=== PATIENT | female | born 1945 | race Caucasian/White ===

== ENCOUNTER 2019-07-02 19:49 | Inpatient (IN) | payer MEDICARE, OTHER ==
[~2019-07-02] VITALS: Ht 160 cm; Wt 62.6 kg
[2019-07-02 22:04] LABS: BASOPHILS # (AUTO) 0.1 K/uL (0.0-8.0); BASOPHILS % (AUTO) 0.6 % (0.0-2.0); EOSINOPHILS # (AUTO) 0.3 K/uL (0.0-0.7); EOSINOPHILS % (AUTO) 2.7 % (0.0-7.0); HEMATOCRIT 31.5 % (31.2-41.9); LYMPHOCYTES # (AUTO) 3.4 K/uL (20.0-40.0); LYMPHOCYTES % (AUTO) 32.9 % (20.5-51.5); MEAN CORPUSCULAR HEMOGLOBIN 24.3 uug (24.7-32.8); MEAN CORPUSCULAR HGB CONC 32 g/dL (32.3-35.6); MEAN CORPUSCULAR VOLUME 76.7 fL (75.5-95.3); MONOCYTES # (AUTO) 0.5 K/uL (2.0-10.0); MONOCYTES % (AUTO) 5.1 % (0.0-11.0); NEUTROPHILS # (AUTO) 6.1 K/uL (1.8-8.9); NEUTROPHILS % (AUTO) 58.7 % (38.5-71.5); PLATELET COUNT (AUTO) 307 K/uL (179-408); RED BLOOD CELL COUNT(AUTO) 4.11 MIL/uL (3.63-4.92); WHITE BLOOD COUNT (AUTO) 10.3 K/uL (3.8-11.8)
[2019-07-02 22:07] LABS: POTASSIUM 4.4 mmol/L (3.5-5.1)
[2019-07-02 22:13] LABS: BILIRUBIN,DIRECT 0.1 mg/dL (0.0-0.2); BILIRUBIN,TOTAL 0.6 mg/dL (0.2-1.0); TOTAL PROTEIN, SERUM 7.9 g/dL (6.4-8.2)
[2019-07-02] MEDS ORDERED: IV NORMAL SALINE 1000 ML BAG IV ONE (22:15)
[2019-07-02] MEDS ORDERED: ONDANSETRON 4 MG/2 ML VIAL IV ONE (22:15)
[2019-07-02] MEDS ORDERED: ONDANSETRON 4 MG/2 ML VIAL ONE (22:18)
[2019-07-02] MEDS ORDERED: ACETAMINOPHEN 325 MG TABLET PO PRN (22:45)
[2019-07-02] MEDS ORDERED: ONDANSETRON 4 MG/2 ML VIAL IV PRN (22:45)
[2019-07-02] MEDS ORDERED: MAGNESIUM HYDROXIDE 30 ML LIQUID UDC PO PRN (22:45)
[2019-07-02] MEDS ORDERED: Z GUARD REMEDY PASTE 57 GM TUBE TOP PRN (22:45)
[2019-07-02 23:16] LABS: *BILIRUBIN,URIN NEGATIVE (NEGATIVE); *BLOOD, URINE NEGATIVE (NEGATIVE); *KETONES,URINE NEGATIVE (NEGATIVE); *UROBILINOGEN,URINE 0.2 E.U./dl (NORMAL); LEUKOCYTE ESTERASE ,URINE TRACE (NEGATIVE); NITRITE, URINE NEGATIVE (NEGATIVE); UGLUCOSE NEGATIVE (NEGATIVE)
[2019-07-02 23:25] LABS: *CLARITY,URINE HAZY (CLEAR)
[2019-07-02 23:26] LABS: BACTERIA,URINE MANY /HPF (NONE SEEN); RBC,URINE NONE SEEN /HPF (0-3); SQUAMOUS EPITHELIAL CELL,UR NONE SEEN /HPF (NONE SEEN)
[2019-07-02 23:27] LABS: *COLOR,URINE STRAW (YELLOW)
[2019-07-03] MEDS: ATORVASTATIN 20 MG TABLET PO SCH ×2 (01:20→21:19)
[2019-07-03] MEDS: IV NS 1000 ML 1,000 ML IV PRN ×2 (01:56→15:39)
[2019-07-03 02:00] VITALS: BP 107/32
[2019-07-03] MEDS ORDERED: PANTOPRAZOLE SODIUM 40 MG VIAL ONE (03:40)
[2019-07-03] MEDS ORDERED: CEFTRIAXONE 1 G VIAL ONE (03:40)
[2019-07-03] MEDS: CEFTRIAXONE 1 G in IV DEXTROSE 5% 50 ML IV SCH (03:52)
[2019-07-03] MEDS: PANTOPRAZOLE SODIUM IV 40 MG in IV DEXTROSE 5% 100 ML IV SCH ×2 (04:43→05:00)
[2019-07-03 04:56] LABS: BASOPHILS # (AUTO) 0.1 K/uL (0.0-8.0); BASOPHILS % (AUTO) 0.8 % (0.0-2.0); EOSINOPHILS # (AUTO) 0.4 K/uL (0.0-0.7); EOSINOPHILS % (AUTO) 4.9 % (0.0-7.0); HEMATOCRIT 28.3 % (31.2-41.9); HEMOGLOBIN 8.8 g/dL (10.9-14.3); LYMPHOCYTES # (AUTO) 3.2 K/uL (20.0-40.0); LYMPHOCYTES % (AUTO) 36.4 % (20.5-51.5); MEAN CORPUSCULAR HEMOGLOBIN 23.9 uug (24.7-32.8); MEAN CORPUSCULAR HGB CONC 31 g/dL (32.3-35.6); MEAN CORPUSCULAR VOLUME 76.9 fL (75.5-95.3); MONOCYTES # (AUTO) 0.6 K/uL (2.0-10.0); MONOCYTES % (AUTO) 6.5 % (0.0-11.0); NEUTROPHILS # (AUTO) 4.5 K/uL (1.8-8.9); NEUTROPHILS % (AUTO) 51.4 % (38.5-71.5); PLATELET COUNT (AUTO) 229 K/uL (179-408); RED BLOOD CELL COUNT(AUTO) 3.68 MIL/uL (3.63-4.92); WHITE BLOOD COUNT (AUTO) 8.7 K/uL (3.8-11.8)
[2019-07-03 05:07] LABS: PHOSPHOROUS 3.7 mg/dL (2.5-4.9); POTASSIUM 3.8 mmol/L (3.5-5.1)
[2019-07-03 06:22] VITALS: BP 112/45
[2019-07-03] MEDS: BLOOD SUGAR DIAGNOSTIC 1 EACH STRIP VI SCH ×4 (06:49→22:06)
[2019-07-03] MEDS: PANTOPRAZOLE SODIUM 40 MG VIAL IV SCH ×2 (08:24→21:19)
[2019-07-03] MEDS ORDERED: ASPIRIN 81 MG TAB.CHEW PO SCH ×2 (09:00)
[2019-07-03 11:34] VITALS: BP 123/35
[2019-07-03] MEDS ORDERED: ACET-73 PO (14:00)
[2019-07-03] MEDS ORDERED: LORA10TA7 PO (14:06)
[2019-07-03] MEDS ORDERED: ESTR42.53 VG (14:06)
[2019-07-03] MEDS ORDERED: GABA-534 PO (14:06)
[2019-07-03] MEDS ORDERED: ASPI-618 PO (14:06)
[2019-07-03] MEDS ORDERED: ESCI10TA PO (14:06)
[2019-07-03] MEDS ORDERED: HYDR-3895 PO (14:06)
[2019-07-03] MEDS ORDERED: BACL10TA PO (14:06)
[2019-07-03] MEDS ORDERED: FLUT16SP BNOSTRILS (14:10)
[2019-07-03] MEDS ORDERED: MAGN400T26 PO (14:10)
[2019-07-03] MEDS ORDERED: OMEP40CA13 PO (14:10)
[2019-07-03] MEDS ORDERED: NAPR-1009 PO (14:10)
[2019-07-03] MEDS ORDERED: LOSA1TAB42 PO (14:10)
[2019-07-03] MEDS ORDERED: METF-494 PO (14:10)
[2019-07-03] MEDS ORDERED: OXYB5TAB16 PO (14:14)
[2019-07-03] MEDS ORDERED: PRAV40TA3 PO (14:14)
[2019-07-03] MEDS ORDERED: OLOP2.5D5 EACHEYE (14:14)
[2019-07-03] MEDS ORDERED: PRAZ1CAP5 PO (14:18)
[2019-07-03] MEDS ORDERED: ERGO2500 PO (14:18)
[2019-07-03] MEDS ORDERED: DICL100G16 TP (14:18)
[2019-07-03] MEDS: MIRALAX 17 GM POWD.PACK PO SCH (14:59)
[2019-07-03 16:00] VITALS: BP 121/46
[2019-07-03 20:41] VITALS: BP 117/49
[2019-07-03] MEDS ORDERED: BENZOCAINE/MENTH/CETYLPYRD LOZENGE MM PRN (22:00)
[2019-07-04 00:40] VITALS: BP 138/65
[2019-07-04] MEDS: CEFTRIAXONE 1 G in IV DEXTROSE 5% 50 ML IV SCH (03:43)
[2019-07-04] MEDS: IV NS 1000 ML 1,000 ML IV PRN (04:26)
[2019-07-04 05:18] VITALS: BP 143/62
[2019-07-04 06:18] LABS: BASOPHILS % (AUTO) 0.4 % (0.0-2.0); EOSINOPHILS # (AUTO) 0.3 K/uL (0.0-0.7); EOSINOPHILS % (AUTO) 3.6 % (0.0-7.0); HEMATOCRIT 26.5 % (31.2-41.9); HEMOGLOBIN 8.3 g/dL (10.9-14.3); LYMPHOCYTES # (AUTO) 1.8 K/uL (20.0-40.0); MEAN CORPUSCULAR HEMOGLOBIN 24.2 uug (24.7-32.8); MEAN CORPUSCULAR HGB CONC 31 g/dL (32.3-35.6); MEAN CORPUSCULAR VOLUME 77.2 fL (75.5-95.3); MONOCYTES # (AUTO) 0.4 K/uL (2.0-10.0); MONOCYTES % (AUTO) 5.4 % (0.0-11.0); NEUTROPHILS # (AUTO) 4.6 K/uL (1.8-8.9); NEUTROPHILS % (AUTO) 64.6 % (38.5-71.5); PLATELET COUNT (AUTO) 224 K/uL (179-408); RED BLOOD CELL COUNT(AUTO) 3.43 MIL/uL (3.63-4.92); WHITE BLOOD COUNT (AUTO) 7.1 K/uL (3.8-11.8)
[2019-07-04 06:34] LABS: CREATININE 0.9 mg/dL (0.6-1.3); MAGNESIUM 1.8 mg/dL (1.8-2.4); PHOSPHOROUS 3.1 mg/dL (2.5-4.9); POTASSIUM 3.2 mmol/L (3.5-5.1)
[2019-07-04] MEDS: BLOOD SUGAR DIAGNOSTIC 1 EACH STRIP VI SCH ×2 (06:36→11:30)
[2019-07-04] MEDS: PANTOPRAZOLE SODIUM 40 MG VIAL IV SCH (09:16)
[2019-07-04] MEDS: MIRALAX 17 GM POWD.PACK PO SCH (09:16)
[2019-07-04] MEDS ORDERED: POTASSIUM CHLORIDE 20 MEQ TAB.PRT.SR PO ONE (10:15)
[2019-07-04] MEDS ORDERED: CIPR-262 PO (10:23)
[2019-07-04 11:02] VITALS: BP 146/63
== END 2019-07-04 11:45 | disposition home or self-care (01) | DRG 689 ==
LOC: ER 19:49 → TELE3 23:55
PROVIDERS: ADMIT Nurse Practitioner Acute Care; ATTEND Nurse Practitioner Acute Care
PROC: 0DB68ZX Excision of Stomach, Via Natural or Artificial Opening Endoscopic, Diagnostic (ICD-10-PCS; principal; 2019-07-04)
DX: N10 Acute pyelonephritis (principal); G93.41 Metabolic encephalopathy; I69.354 Hemiplegia and hemiparesis following cerebral infarction affecting left non-dominant side; E78.5 Hyperlipidemia, unspecified; R07.9 Chest pain, unspecified; I48.91 Unspecified atrial fibrillation; I10 Essential (primary) hypertension; E11.9 Type 2 diabetes mellitus without complications; Q40.8 Other specified congenital malformations of upper alimentary tract; K44.9 Diaphragmatic hernia without obstruction or gangrene; I67.2 Cerebral atherosclerosis; K76.9 Liver disease, unspecified; G89.4 Chronic pain syndrome; K80.20 Calculus of gallbladder without cholecystitis without obstruction; M48.8X9 Other specified spondylopathies, site unspecified; I70.0 Atherosclerosis of aorta; Z90.710 Acquired absence of both cervix and uterus; Z87.442 Personal history of urinary calculi; D63.8 Anemia in other chronic diseases classified elsewhere; R91.1 Solitary pulmonary nodule; M85.80 Other specified disorders of bone density and structure, unspecified site; D18.09 Hemangioma of other sites; Z79.82 Long term (current) use of aspirin
CPT/HCPCS: 36415; 70030-TC; 70450; 71045; 83690; 83735; 84100; 85025; 87086; 88342; 93005; 93307; A4217; A4663; C1758; C9113; G0378; J0696; J2405; J7030; J7040; J7060

== ENCOUNTER 2020-04-27 16:37 | Emergency (ER) | payer MEDICARE, OTHER ==
[~2020-04-27] VITALS: Ht 162.6 cm; Wt 68.0 kg
[~2020-04-27 16:37] MED LIST: ACET-73 PO; ASPI-618 PO; BACL10TA PO; CIPR-262 PO; DICL100G16 TP; ERGO2500 PO; ESCI10TA PO; ESTR42.53 VG; FLUT16SP BNOSTRILS; GABA-534 PO; HYDR-3895 PO; LORA10TA7 PO; LOSA1TAB42 PO; MAGN400T26 PO; METF-494 PO; NAPR-1009 PO; OLOP2.5D5 EACHEYE; OMEP40CA13 PO; OXYB5TAB16 PO; PRAV40TA3 PO; PRAZ1CAP5 PO
--- NOTE | 2020-04-27 16:41 | NUR ---
Dr Powers at the bedside for MSE.
--- NOTE | 2020-04-27 16:50 | NUR ---
FYI: Pt's address per EMS: [address] [place] [address], [address].
[2020-04-27] MEDS ORDERED: IBUPROFEN 600 MG TABLET ONE (17:29)
[2020-04-27] MEDS ORDERED: IBUPROFEN 600 MG TABLET PO ONE (17:30)
--- NOTE | 2020-04-27 18:10 | NUR ---
Patient discharged to home in stable condition. Written and verbal after care instructions given. Patient and daughter verbalize understanding of instructions. Stressed follow up or return to ER for worsening s/s.wheel chaired pt to daughters car.
[2020-04-27 18:36] VITALS: BP 107/66
== END 2020-04-27 18:38 | disposition home or self-care (01) ==
LOC: ER 16:38
DX: S80.02XA Contusion of left knee, initial encounter (principal); S62.397A Other fracture of fifth metacarpal bone, left hand, initial encounter for closed fracture; W19.XXXA Unspecified fall, initial encounter; Y92.129 Unspecified place in nursing home as the place of occurrence of the external cause; I69.354 Hemiplegia and hemiparesis following cerebral infarction affecting left non-dominant side; Z98.49 Cataract extraction status, unspecified eye; E11.9 Type 2 diabetes mellitus without complications; Z79.84 Long term (current) use of oral hypoglycemic drugs; Z90.710 Acquired absence of both cervix and uterus
CPT/HCPCS: 73130; 73610; A4663

== ENCOUNTER 2020-11-19 09:06 | Inpatient (IN) | payer MEDICARE, OTHER ==
[~2020-11-19] VITALS: Ht 160 cm; Wt 72.6 kg
[2020-11-19] MEDS ORDERED: IV NORMAL SALINE 1000 ML BAG IV ONE ×2 (09:30→11:00)
--- NOTE | 2020-11-19 09:33 | NUR ---
DR Oropeza at the bedside for MSE.
[2020-11-19 09:57] LABS: BASOPHILS # (AUTO) 0.1 K/uL (0.0-8.0); BASOPHILS % (AUTO) 1.1 % (0.0-2.0); EOSINOPHILS # (AUTO) 0.4 K/uL (0.0-0.7); EOSINOPHILS % (AUTO) 4.7 % (0.0-7.0); HEMATOCRIT 34.1 % (31.2-41.9); HEMOGLOBIN 10.9 g/dL (10.9-14.3); LYMPHOCYTES # (AUTO) 3.2 K/uL (20.0-40.0); LYMPHOCYTES % (AUTO) 34.6 % (20.5-51.5); MEAN CORPUSCULAR HEMOGLOBIN 27.5 uug (24.7-32.8); MEAN CORPUSCULAR HGB CONC 32 g/dL (32.3-35.6); MEAN CORPUSCULAR VOLUME 85.8 fL (75.5-95.3); MONOCYTES # (AUTO) 0.6 K/uL (2.0-10.0); MONOCYTES % (AUTO) 6.8 % (0.0-11.0); NEUTROPHILS # (AUTO) 4.9 K/uL (1.8-8.9); NEUTROPHILS % (AUTO) 52.8 % (38.5-71.5); PLATELET COUNT (AUTO) 270 K/uL (179-408); RED BLOOD CELL COUNT(AUTO) 3.97 MIL/uL (3.63-4.92); WHITE BLOOD COUNT (AUTO) 9.4 K/uL (3.8-11.8)
[2020-11-19 10:01] LABS: POTASSIUM 4.4 mmol/L (3.5-5.1)
--- NOTE | 2020-11-19 10:10 | NUR ---
Per Pt and pt's daughter, pt is continant of urine and stool. Pt placed on bedpan for urine collection.
[2020-11-19 10:13] LABS: BILIRUBIN,DIRECT 0.1 mg/dL (0.0-0.2); BILIRUBIN,TOTAL 0.6 mg/dL (0.2-1.0); TOTAL PROTEIN, SERUM 7.3 g/dL (6.4-8.2)
--- NOTE | 2020-11-19 10:25 | NUR ---
Patient is resting comfortably in bed with eyes closed, NAD noted. Pt's daughter at the bedside.
--- NOTE | 2020-11-19 10:42 | NUR ---
DAUGHTER TO BRING CURRENT MEDICATION LIST AND DOSAGES TODAY.
--- NOTE | 2020-11-19 11:58 | NUR ---
Attempted to collect urine, but unable to. Dr Oropeza made aware. Continue w/ IVF infusion.
[2020-11-19] MEDS ORDERED: ACETAMINOPHEN 325 MG TABLET PO PRN (12:45)
[2020-11-19] MEDS ORDERED: Z GUARD REMEDY PASTE 57 GM TUBE TOP PRN (12:45)
[2020-11-19] MEDS ORDERED: ONDANSETRON 4 MG/2 ML VIAL IV PRN (12:45)
[2020-11-19] MEDS ORDERED: MAGNESIUM HYDROXIDE 30 ML LIQUID UDC PO PRN (12:45)
--- NOTE | 2020-11-19 12:45 | NUR ---
RECEIVED PATIENT FROM ED 74 YEARS OLD FEMALE BY PAOLO TO ROOM 308 PLACED INTO BED FIXED AND MADE COMFORTABLE PATIENT IS ALERT AND AWARE HER DAUGHTER IS AT THE BEDSIDE AND STATED THAT HER MOTHER WAS DISORIENTED BUT SHE IS ABLE TO RESPOND TO HER IN FARSI SHE IS ON ROOM AIR WITH NO SHORTNESS OF BREATH AT THIS TIME TELE CONNECTED SR AT THIS TIME HEPLOCK RIGHT FOREARM INTACT IVF FINISHING UP FROM ED LEFT ARM IS FLACCID LEFT LEG WITH SEVERE WEAKNESS DAUGHTER STATED THAT PATIENT IS W/CHAIR BOUD BUT AT TIMES ABLE TO GET UP WITH A FOUR WHEEL CANE.ORIENTED TO ROOM CALL LIGHTS AND PERSONAL BELONGINGS ARE WITHIN EASY REACH AT THIS TIME DR BENJAMIN AWARE THAT PATIENT IS HERE AT THIS TIME AWAITING FOR ORDERS.
[2020-11-19 13:00] VITALS: BP 118/60
[2020-11-19] MEDS: IV NS 1000 ML 1,000 ML IV PRN (13:58)
[2020-11-19] MEDS: ESCITALOPRAM OXALATE 10 MG TABLET PO SCH (14:05)
[2020-11-19] MEDS: LOSARTAN POTASSIUM 50 MG TABLET PO SCH (14:06)
[2020-11-19] MEDS: HYDROCHLOROTHIAZIDE 12.5 MG CAPSULE PO SCH (14:08)
[2020-11-19 14:38] LABS: *BILIRUBIN,URIN NEGATIVE (NEGATIVE); *BLOOD, URINE NEGATIVE (NEGATIVE); *CLARITY,URINE CLEAR (CLEAR); *COLOR,URINE LIGHT YELLOW (YELLOW); *KETONES,URINE NEGATIVE (NEGATIVE); *UROBILINOGEN,URINE 0.2 E.U./dl (NORMAL); LEUKOCYTE ESTERASE ,URINE NEGATIVE (NEGATIVE); NITRITE, URINE NEGATIVE (NEGATIVE); PH,URINE 5.5 (5.0-8.0); UGLUCOSE NEGATIVE (NEGATIVE)
[2020-11-19] MEDS ORDERED: HYDROXYZINE PAMOATE 25 MG CAPSULE PO PRN (14:45)
--- NOTE | 2020-11-19 14:59 | NUR ---
VOIDED IN THE BEDPAN SPECIMEN OBTAINED AND SENT TO THE LAB ORDERED.
[2020-11-19 16:04] VITALS: BP 133/44
[2020-11-19] MEDS: BACLOFEN 20 MG TABLET PO SCH (16:59)
[2020-11-19] MEDS: OXYBUTYNIN CHLORIDE 5 MG TABLET PO SCH (16:59)
--- NOTE | 2020-11-19 17:44 | NUR ---
IN BED REFUSING DINNER HAD A LATE LUNCH FAMILY LEFT AND WILL BE BACK LATER IVF REMAIN IN PROGRESS ORDERED WITH SITE PATENT WITH NO S/S OF INFILTERATION AT THIS TIME TELE REMAINS SR NO ECTOPY WILL CONTINUE TO OBSERVE.
[2020-11-19 20:12] VITALS: BP 140/54
[2020-11-19] MEDS: ATORVASTATIN 10 MG TABLET PO SCH (20:53)
[2020-11-19] MEDS: GABAPENTIN 300 MG CAPSULE PO SCH (20:53)
[2020-11-19] MEDS: Z GUARD REMEDY PASTE 57 GM TUBE TOP SCH (20:53)
[2020-11-19] MEDS: ENOXAPARIN SODIUM 40 MG/0.4 ML DISP.SYRIN SQ SCH (20:54)
[2020-11-19] MEDS: PRAZOSIN HCL 1 MG CAPSULE PO SCH (20:54)
[2020-11-19] MEDS ORDERED: HYDROXYZINE PAMOATE 25 MG CAPSULE PO SCH (21:00)
[2020-11-19] MEDS ORDERED: MELATONIN 3 MG TABLET PO SCH (22:00)
[2020-11-20] VITALS: BP 122/50
[2020-11-20] MEDS: IV NS 1000 ML 1,000 ML IV PRN ×2 (02:54→16:24)
[2020-11-20 04:12] VITALS: BP 127/47
--- NOTE | 2020-11-20 05:24 | NUR ---
Pt slept throughout the night. No distress noted. IV site intact, running ordered fluids. Pt tolerating well. SR on tele. Denies chest pain or difficulty breathing. Bed is locked and in lowest position. Safety provided throughout shift. No other issues or concerns at this time, will endorse to day shift.
[2020-11-20] MEDS: PANTOPRAZOLE SODIUM 40 MG TABLET.DR PO SCH (06:05)
[2020-11-20 06:44] LABS: BASOPHILS % (AUTO) 0.5 % (0.0-2.0); EOSINOPHILS # (AUTO) 0.4 K/uL (0.0-0.7); EOSINOPHILS % (AUTO) 5.7 % (0.0-7.0); HEMATOCRIT 29.8 % (31.2-41.9); HEMOGLOBIN 9.6 g/dL (10.9-14.3); LYMPHOCYTES # (AUTO) 3.3 K/uL (20.0-40.0); LYMPHOCYTES % (AUTO) 42.3 % (20.5-51.5); MEAN CORPUSCULAR HGB CONC 32 g/dL (32.3-35.6); MEAN CORPUSCULAR VOLUME 86.9 fL (75.5-95.3); MONOCYTES # (AUTO) 0.5 K/uL (2.0-10.0); MONOCYTES % (AUTO) 6.6 % (0.0-11.0); NEUTROPHILS # (AUTO) 3.5 K/uL (1.8-8.9); NEUTROPHILS % (AUTO) 44.9 % (38.5-71.5); PLATELET COUNT (AUTO) 219 K/uL (179-408); RED BLOOD CELL COUNT(AUTO) 3.43 MIL/uL (3.63-4.92); WHITE BLOOD COUNT (AUTO) 7.8 K/uL (3.8-11.8)
[2020-11-20 06:51] LABS: BILIRUBIN,TOTAL 0.5 mg/dL (0.2-1.0); CREATININE 0.8 mg/dL (0.6-1.3); MAGNESIUM 1.9 mg/dL (1.8-2.4); PHOSPHOROUS 3.3 mg/dL (2.5-4.9); POTASSIUM 3.8 mmol/L (3.5-5.1); TOTAL PROTEIN, SERUM 5.8 g/dL (6.4-8.2)
[2020-11-20 07:00] LABS: THYROID STIMULATING HORMONE 0.734 mIU/mL (0.358-3.740)
--- NOTE | 2020-11-20 07:26 | NUR ---
RECEIVED PATIENT ASLEEP ON ROUNDS WITH EYES CLOSED BUT IS EASILY AROUSABLE ON ROUNDS SHE IS ALERT ORIENTED BUT IS FORGETFUL BUT ALSO HAS LANGUAGE BARRIERS ON ROOM AIR WITH NO SHORTNESS OF BREATH AT THIS TIME IVF OF NS IN PROGRESS TO HER RIGHT FOREARM WITH NO S/S OF INFILTERATION ON SITE CALL LIGHTS AND PERSONAL BELONGINGS ARE WITHIN EASY REACH MADE COMFORTABLE NOT IN DISTRESS AT THIS TIME WILL CONTINUE TO OBSERVE.
[2020-11-20] MEDS: BACLOFEN 20 MG TABLET PO SCH ×2 (08:04→16:28)
[2020-11-20] MEDS: ASPIRIN EC 81 MG TABLET.DR PO SCH (08:04)
[2020-11-20] MEDS: OXYBUTYNIN CHLORIDE 5 MG TABLET PO SCH ×2 (08:04→16:28)
[2020-11-20] MEDS: HYDROCHLOROTHIAZIDE 12.5 MG CAPSULE PO SCH (08:04)
[2020-11-20] MEDS: ESCITALOPRAM OXALATE 10 MG TABLET PO SCH (08:04)
[2020-11-20] MEDS: LOSARTAN POTASSIUM 50 MG TABLET PO SCH (08:05)
[2020-11-20] MEDS: Z GUARD REMEDY PASTE 57 GM TUBE TOP SCH ×2 (08:05→21:23)
[2020-11-20] MEDS ORDERED: Medication Not On Formulary EA (Losartan/Hydrochlorothiazide (Losartan-Hctz 100-12.5 Mg PO SCH (09:00)
[2020-11-20 11:59] VITALS: BP 106/48
[2020-11-20] MEDS ORDERED: METFORMIN XR 500 MG TAB.SR.24H PO SCH (14:00)
[2020-11-20 16:00] VITALS: BP 144/61
--- NOTE | 2020-11-20 16:15 | NUR ---
PATIENT SEEN BY THE PHYSICAL THERAPIST FOR EVAL AND SHE WAS GOTTEN OUT OF BED WITH MAX ASSIST OF TWO AND WAS ABLE TO TAKE SOME SIDE STEPS WITH MAX ASSIST THEN BACK TO BED.
[2020-11-20] MEDS ORDERED: METF-440 PO (17:12)
[2020-11-20] MEDS ORDERED: FESO4TAB PO (17:12)
[2020-11-20] MEDS ORDERED: MELA3TAB41 PO (17:12)
[2020-11-20] MEDS ORDERED: DIPH25CA83 PO (17:12)
--- NOTE | 2020-11-20 18:00 | NUR ---
PATIENT IS RESTING IN BED WITH IVF IN PROGRESS ORDERED TELE IS SR NOT IN DISTRESS AT THIS TIME
[2020-11-20 20:06] VITALS: BP 147/60
--- NOTE | 2020-11-20 21:00 | NUR ---
PATIENT AWAKE SPEAK FARSI DAUGHTER AT BEDSIDE ABLE TO INTERPRET FOR THE PATIENT, PATIENT STILL ALTERED, AND AFRAID, REORIENT PATIENT ABLE TO FOLLOW REORIENTATION. DAUGHTER WAS CONCERNED ABOUT PATIENT AMS, EDUCATE FAMILY THAT INFECTION CAN CAUSE CONFUSION, AND URINE WAS SENT TO LAB ORDERED. PATIENT HAS EPISODE OF ANXIETY, AFRAID, CRYING, FAMILY REQUEST TO MEDICATE PATIENT FOR ANXIETY, GIVEN MEDS ORDERED. CONT TO MONITOR.
[2020-11-20] MEDS: GABAPENTIN 300 MG CAPSULE PO SCH (21:11)
[2020-11-20] MEDS: ATORVASTATIN 10 MG TABLET PO SCH (21:11)
[2020-11-20] MEDS: MELATONIN 3 MG TABLET PO SCH (21:11)
[2020-11-20] MEDS: PRAZOSIN HCL 1 MG CAPSULE PO SCH (21:12)
[2020-11-20] MEDS: LORATADINE 10 MG TABLET PO PRN (21:15)
[2020-11-20] MEDS: ENOXAPARIN SODIUM 40 MG/0.4 ML DISP.SYRIN SQ SCH (21:36)
[2020-11-21 00:03] VITALS: BP 133/47
[2020-11-21] MEDS: IV NS 1000 ML 1,000 ML IV PRN ×2 (03:00→19:15)
[2020-11-21 04:09] VITALS: BP 111/51
--- NOTE | 2020-11-21 05:33 | NUR ---
PATIENT ASLEEP BUT EASILY AROUSABLE, TELE MONITOR SINUS RHYTHM AT THIS TIME. PATIENT HAS NO COMPLAIN OF PAIN, RENDERED GOOD TSERING CARE FOR BLADDER INCONTINENCE. PATIENT HAS NO SOB NO CHEST PAIN, CONT TO MONITOR.
[2020-11-21] MEDS: PANTOPRAZOLE SODIUM 40 MG TABLET.DR PO SCH (06:14)
--- NOTE | 2020-11-21 07:41 | NUR ---
Patient resting but easy to arouse. Breathing even and non labored. In no acute distress. Iv hydration ongoing and tolerated. Bed low and locked. Safety precautions maintained. Kept comfortable. Will continue to monitor.
[2020-11-21 08:20] VITALS: BP 153/53
[2020-11-21] MEDS: METFORMIN HCL 500 MG TABLET PO SCH ×2 (08:28→17:12)
[2020-11-21] MEDS: ASPIRIN EC 81 MG TABLET.DR PO SCH (08:28)
[2020-11-21] MEDS: HYDROCHLOROTHIAZIDE 12.5 MG CAPSULE PO SCH (08:29)
[2020-11-21] MEDS: LOSARTAN POTASSIUM 50 MG TABLET PO SCH (08:29)
[2020-11-21] MEDS: ESCITALOPRAM OXALATE 10 MG TABLET PO SCH (08:29)
[2020-11-21] MEDS: OXYBUTYNIN CHLORIDE 5 MG TABLET PO SCH ×2 (08:29→17:12)
[2020-11-21] MEDS: Z GUARD REMEDY PASTE 57 GM TUBE TOP SCH ×2 (08:30→21:24)
[2020-11-21] MEDS ORDERED: METFORMIN HCL 500 MG TABLET PO SCH (09:00)
--- NOTE | 2020-11-21 10:30 | NUR ---
Patient was seen by physical therapist and was gotten out of bed with maximum 2 assist. Patient was able to walk in the hallway with assistance for a few minutes then put back to bed.
[2020-11-21 11:31] VITALS: BP 104/56
[2020-11-21] MEDS: HYDROCODONE/APAP 5-325MG TABLET PO PRN ×2 (14:33→23:56)
[2020-11-21 16:00] VITALS: BP 130/58
[2020-11-21] MEDS: BLOOD SUGAR DIAGNOSTIC 1 EACH STRIP VI SCH ×2 (16:57→20:50)
--- NOTE | 2020-11-21 17:12 | NUR ---
Metformin dose for 1800 held due to blood sugar 72 mg/dl. Charge nurse is aware.
--- NOTE | 2020-11-21 19:29 | NUR ---
Patient in bed awake and interacting with family. In no acute distress. No pain or facial grimacing. Iv ongoing and tolerated. Safety measures maintained. Endorsed accordingly.
--- NOTE | 2020-11-21 19:30 | NUR ---
Received patient lying in bed. AAOx2-3. In no acute distress. Family at bedside. No signs or symptoms of pain or SOB. IV site on right FA intact and patent. IVF infusing. NSR pn tele at 74/min. Safety measure initiated and call krishna within reached.
[2020-11-21 20:00] VITALS: BP 144/58
[2020-11-21] MEDS: ENOXAPARIN SODIUM 40 MG/0.4 ML DISP.SYRIN SQ SCH (20:28)
[2020-11-21] MEDS: GABAPENTIN 300 MG CAPSULE PO SCH (20:29)
[2020-11-21] MEDS: MELATONIN 3 MG TABLET PO SCH (20:29)
[2020-11-21] MEDS: ATORVASTATIN 10 MG TABLET PO SCH (20:29)
--- NOTE | 2020-11-21 20:49 | NUR ---
Patient FSBS is 203mg/dl. Patient on Metformin 500mg daily in am and no sliding scale coverage. Dr. Bui made aware with no new order given.
[2020-11-21] MEDS: LORATADINE 10 MG TABLET PO PRN (20:50)
[2020-11-21] MEDS ORDERED: BACLOFEN 10 MG TABLET PO SCH (21:00)
[2020-11-21] MEDS: PRAZOSIN HCL 1 MG CAPSULE PO SCH (21:24)
[2020-11-22] VITALS: BP 131/64
[2020-11-22 05:24] VITALS: BP 128/61
--- NOTE | 2020-11-22 05:55 | NUR ---
Dr. Kay into visit and order to discontinue Tele and carried out.
[2020-11-22] MEDS: PANTOPRAZOLE SODIUM 40 MG TABLET.DR PO SCH (06:02)
--- NOTE | 2020-11-22 06:18 | NUR ---
AAOx2-3. In no acute distress. No signs or symptoms of pain or SOB. IV site on right FA intact and patent. IVF infusing. NSR on tele at 62/min. Needs assessed and attended to. Safety measure maintained and call krishna within reached.
[2020-11-22 06:25] LABS: BASOPHILS % (AUTO) 0.5 % (0.0-2.0); EOSINOPHILS # (AUTO) 0.5 K/uL (0.0-0.7); EOSINOPHILS % (AUTO) 6.3 % (0.0-7.0); HEMATOCRIT 28.9 % (31.2-41.9); HEMOGLOBIN 9.4 g/dL (10.9-14.3); LYMPHOCYTES # (AUTO) 3.7 K/uL (20.0-40.0); LYMPHOCYTES % (AUTO) 45.3 % (20.5-51.5); MEAN CORPUSCULAR HEMOGLOBIN 28.4 uug (24.7-32.8); MEAN CORPUSCULAR HGB CONC 33 g/dL (32.3-35.6); MONOCYTES # (AUTO) 0.5 K/uL (2.0-10.0); MONOCYTES % (AUTO) 6.3 % (0.0-11.0); NEUTROPHILS # (AUTO) 3.4 K/uL (1.8-8.9); NEUTROPHILS % (AUTO) 41.6 % (38.5-71.5); PLATELET COUNT (AUTO) 204 K/uL (179-408); RED BLOOD CELL COUNT(AUTO) 3.32 MIL/uL (3.63-4.92); WHITE BLOOD COUNT (AUTO) 8.1 K/uL (3.8-11.8)
[2020-11-22] MEDS: BLOOD SUGAR DIAGNOSTIC 1 EACH STRIP VI SCH ×2 (06:32→10:57)
[2020-11-22 06:37] LABS: CREATININE 0.8 mg/dL (0.6-1.3); POTASSIUM 3.3 mmol/L (3.5-5.1)
[2020-11-22] MEDS: METFORMIN HCL 500 MG TABLET PO SCH (08:43)
[2020-11-22] MEDS: IV NS 1000 ML 1,000 ML IV PRN (08:51)
[2020-11-22 09:00] VITALS: BP 130/50
[2020-11-22] MEDS: LOSARTAN POTASSIUM 50 MG TABLET PO SCH (09:02)
[2020-11-22] MEDS: HYDROCHLOROTHIAZIDE 12.5 MG CAPSULE PO SCH (09:02)
[2020-11-22] MEDS: OXYBUTYNIN CHLORIDE 5 MG TABLET PO SCH (09:02)
[2020-11-22] MEDS: ESCITALOPRAM OXALATE 10 MG TABLET PO SCH (09:02)
[2020-11-22] MEDS: ASPIRIN EC 81 MG TABLET.DR PO SCH (09:02)
[2020-11-22] MEDS: Z GUARD REMEDY PASTE 57 GM TUBE TOP SCH (09:03)
[2020-11-22] MEDS ORDERED: IV NORMAL SALINE 500 ML IV ONE (09:45)
[2020-11-22] MEDS: POTASSIUM CHLORIDE 20 MEQ TAB.PRT.SR PO ONE ×2 (10:20→10:53)
[2020-11-22 11:31] VITALS: BP 154/85
--- NOTE | 2020-11-22 15:16 | NUR ---
patient is alert, awake, no sob, reps even nonlabored, skin warm and dry to touch, [facility] and jose l transferred to [facility]. patient has right sided weakness due to history of CVA, no distress noted, belongings accounted and signed
[2020-11-22 15:41] VITALS: BP 124/56
== END 2020-11-22 16:03 | DRG 640 ==
LOC: ER 09:06 → TELE3 12:33 → MEDSURG3 11-22 05:58
PROVIDERS: ADMIT Nurse Practitioner Acute Care; ATTEND Hospitalist
DX: E86.0 Dehydration (principal); G93.41 Metabolic encephalopathy; I69.354 Hemiplegia and hemiparesis following cerebral infarction affecting left non-dominant side; D68.69 Other thrombophilia; I48.91 Unspecified atrial fibrillation; I95.89 Other hypotension; Z87.442 Personal history of urinary calculi; Z79.82 Long term (current) use of aspirin; Z20.822 Contact with and (suspected) exposure to COVID-19; E87.6 Hypokalemia; E78.5 Hyperlipidemia, unspecified; F32.9 Major depressive disorder, single episode, unspecified; G89.4 Chronic pain syndrome; I10 Essential (primary) hypertension; Z90.710 Acquired absence of both cervix and uterus; D72.829 Elevated white blood cell count, unspecified; D63.8 Anemia in other chronic diseases classified elsewhere; E87.2 Acidosis; E86.1 Hypovolemia; E87.0 Hyperosmolality and hypernatremia; Z79.84 Long term (current) use of oral hypoglycemic drugs; Z74.09 Other reduced mobility
CPT/HCPCS: 36415; 70030-TC; 70450; 71045; 83605; 83735; 84100; 84443; 85025; 85730; 87040; 87086; 93005; A4663; G0378; J1650; J7030; J7040

== ENCOUNTER 2020-11-22 14:25 | Inpatient (IN) | payer MEDICARE, OTHER ==
[~2020-11-22] VITALS: Ht 162.6 cm; Wt 69.4 kg
[~2020-11-22 14:25] MED LIST changes: +DIPH25CA83 PO; +FESO4TAB PO; +MELA3TAB41 PO; +METF-440 PO; -METF-494 PO; -OMEP40CA13 PO; +OMEP40CA21 PO
[2020-11-22 17:09] VITALS: BP 134/45
[2020-11-22 20:00] VITALS: BP 152/55
[2020-11-22] MEDS ORDERED: NAPROXEN 500 MG TABLET PO PRN (23:00)
--- NOTE | 2020-11-23 01:35 | NUR ---
received a 74 7r old female from Med-surg with admitting diagnosis of dehydration. Hx of CVA with left side weakness. HTN,Afib, Depression and back surgery in the past. AAOx3-[address] forget[address] VSS[address] Phan aware of patient's admission, meds reconcile. Needs attended. Incontinent of urine and BM. Kept clean and dry. Repositioned for comfort. Siderails up for safety. No distress noted.
[2020-11-23 04:00] VITALS: BP 132/78
[2020-11-23 08:00] VITALS: BP 159/60
[2020-11-23] MEDS: METFORMIN HCL 500 MG TABLET PO SCH ×2 (08:07→17:02)
[2020-11-23] MEDS: OXYBUTYNIN CHLORIDE 5 MG TABLET PO SCH ×2 (08:07→16:06)
[2020-11-23] MEDS ORDERED: LOSARTAN POTASSIUM 50 MG TABLET PO SCH (09:00)
[2020-11-23] MEDS ORDERED: LORATADINE 10 MG TABLET PO SCH (09:00)
[2020-11-23] MEDS: FLUTICASONE PROP NASAL SPRAY 16 GM BOTTLE NS SCH ×2 (09:00→16:13)
[2020-11-23] MEDS ORDERED: HYDROCHLOROTHIAZIDE 12.5 MG CAPSULE PO SCH (09:00)
[2020-11-23] MEDS ORDERED: MAGNESIUM OXIDE 400 MG TABLET PO SCH (09:00)
[2020-11-23] MEDS ORDERED: ESCITALOPRAM OXALATE 10 MG TABLET PO SCH (09:00)
[2020-11-23] MEDS ORDERED: ASPIRIN EC 81 MG TABLET.DR PO SCH (09:00)
[2020-11-23] MEDS ORDERED: diphenhydrAMINE 50 MG/1 ML VIAL IV ONE (14:15)
--- NOTE | 2020-11-23 14:16 | NUR ---
pt c/o itching all over her body md made aware new orders received noted and carried out
[2020-11-23 15:56] VITALS: BP 136/61
--- NOTE | 2020-11-23 17:30 | NUR ---
RECEIVED CALL FROM DAUGHTER CEFERINO OUT OF TOWN. UPSET THAT PATIENT WAS TRANSFERRED TO REHAB ROOM. STATES MOTHER IS AFRAID IN THAT ROOM. INSTRUCTED THAT I PERSONALLY HAVE BEEN CHECKING ON THE PATIENT FREQUENTLY SINCE THE TRANSFER. INSTRUCTED THAT HER MOM REPEATEDLY STATED THAT SHE WAS FINE, AND EVERYTHING WAS OK.
--- NOTE | 2020-11-23 18:00 | NUR ---
RECEIVED CALL FROM DAUGHTER CEFERINO [place] OF [place]OWN. UPSET SHE SAID SHE WANTS TO TAKE HER MOTHER HOME ALL THE CONTRAINDICATIONS AND AMA PROCEDURE EXPLAIN TO THE DAUGHTER SHE SAID OK AND TELL HER LET ME TALK TO THE DR RUSSELL AND DEPARTMENT HELPER
--- NOTE | 2020-11-23 18:10 | NUR ---
TALK TO THE ORACLE CONSULTANT AND DR RUSSELL ABOUT THE PT DAUGHTER SAYING SHE WANTS TO TAKE HER MOM HOME PER MD ORDERS HE DID NOT SEE THE PT IS NOT COMFORTABLE TO DC THE PT IF DAUGHTER WANTS TO TAKE HER HOME SHE CAN GO AMA AND ALSO TALK TO PT OTHER DAUGHTER MANJEET ABOUT THE PLANS
--- NOTE | 2020-11-23 18:25 | NUR ---
DAUGHTER REQUESTING COPIES OF MEDICAL RECORDS. INSTRUCTED RECORDS NOT AVAILABLE TO AMA DISCHARGES. DAUGHTER INSTRUCTED THAT CAN CALL [facility] IN ONE OR TWO DAYS FOR COMPLETED RECORDS. DAUGHTER STILL SCREAMING AND THREATENING TO THE NURSE AND SAYING SHE WILL COMPLAIN THAT THE RNS ARE NOT CLEANING HER MOM, NOR GIVING HER MEDICATIONS. RN TRIED TO EXPLAIN TO THE DAUGHTER BUT SHE IS NOT WILLING TO LISTEN. CARE SERVICES MANAGER AND CAMP HEAD COUNSELOR NOTIFIED.
--- NOTE | 2020-11-23 18:50 | NUR ---
PT LEFT WITH DAUGHTER AMA, EXIT CARE GIVEN. EXPLAIN TO DAUGHTER THAT SHE CAN CALL [facility] TOMORROW TO GET THE MOMS MEDICAL RECORD. PT LEFT AMA IN PROPER CLOTHES AND IN STABLE CONDITION, WHEELCHAIR PROVIDED. DIKE SUPERVISOR NOTIFIED. IV ACCESS SALINE LOCK REMOVED. DAUGHTER SIGNED ALL AMA PAPERWORK.
[2020-11-23] MEDS ORDERED: HYDROXYZINE PAMOATE 25 MG CAPSULE PO SCH (21:00)
[2020-11-23] MEDS ORDERED: PRAZOSIN HCL 1 MG CAPSULE PO SCH (21:00)
[2020-11-23] MEDS ORDERED: GABAPENTIN 300 MG CAPSULE PO SCH (21:00)
[2020-11-23] MEDS ORDERED: MELATONIN 3 MG TABLET PO SCH (21:00)
[2020-11-23] MEDS ORDERED: BACLOFEN 10 MG TABLET PO SCH (21:00)
[2020-11-23] MEDS ORDERED: ATORVASTATIN 10 MG TABLET PO SCH (21:00)
== END 2020-11-23 18:50 | disposition left against medical advice (07) | DRG 640 ==
PROVIDERS: ADMIT Physical Medicine & Rehabilitation Pain Medicine; ATTEND Physical Medicine & Rehabilitation Pain Medicine
DX: E86.0 Dehydration (principal); G93.41 Metabolic encephalopathy; D68.59 Other primary thrombophilia; I69.354 Hemiplegia and hemiparesis following cerebral infarction affecting left non-dominant side; E87.0 Hyperosmolality and hypernatremia; E87.2 Acidosis; D63.8 Anemia in other chronic diseases classified elsewhere; E11.9 Type 2 diabetes mellitus without complications; E78.5 Hyperlipidemia, unspecified; E86.1 Hypovolemia; R53.1 Weakness; F01.50 Vascular dementia, unspecified severity, without behavioral disturbance, psychotic disturbance, mood disturbance, and anxiety; F32.9 Major depressive disorder, single episode, unspecified; G89.4 Chronic pain syndrome; I95.89 Other hypotension; I10 Essential (primary) hypertension; Z87.442 Personal history of urinary calculi; Z90.710 Acquired absence of both cervix and uterus; I48.91 Unspecified atrial fibrillation; Z87.440 Personal history of urinary (tract) infections
CPT/HCPCS: J1200; J3535

== ENCOUNTER 2022-01-24 16:04 | Inpatient (IN) | payer MEDICARE, OTHER ==
[~2022-01-24] VITALS: Ht 160 cm; Wt 69.7 kg
[~2022-01-24 16:04] MED LIST changes: -ACET-73 PO; -CIPR-262 PO; -ERGO2500 PO; -ESTR42.53 VG; -LORA10TA7 PO; -NAPR-1009 PO; -OLOP2.5D5 EACHEYE; -OXYB5TAB16 PO; -PRAV40TA3 PO; -PRAZ1CAP5 PO
[2022-01-24] MEDS ORDERED: IV NORMAL SALINE 1000 ML BAG IV ONE (16:30)
[2022-01-24 17:06] LABS: HEMATOCRIT 39.1 % (31.2-41.9); MEAN CORPUSCULAR HEMOGLOBIN 31.1 uug (24.7-32.8); MEAN CORPUSCULAR VOLUME 93.1 fL (75.5-95.3); PLATELET COUNT (AUTO) 209 K/uL (179-408)
[2022-01-24 17:15] LABS: CARBON DIOXIDE 24 mmol/L (21-32); CHLORIDE 98 mmol/L (98-107); CREATININE 1.1 mg/dL (0.6-1.3); GLUCOSE 146 mg/dL (74-106); POTASSIUM 3.8 mmol/L (3.5-5.1); UREA NITROGEN, BLOOD 11 mg/dL (7-18)
[2022-01-24 17:27] LABS: ALANINE AMINOTRANSFERASE 36 U/L (14-59); ALKALINE PHOSPHATASE 66 U/L (50-136); ASPARTATE AMINOTRANSFERASE 30 U/L (15-37); BILIRUBIN,DIRECT 0.2 mg/dL (0.0-0.2); BILIRUBIN,TOTAL 0.9 mg/dL (0.2-1.0); TOTAL PROTEIN, SERUM 7.4 g/dL (6.4-8.2)
[2022-01-24] MEDS ORDERED: FERR325T28 PO (17:34)
[2022-01-24] MEDS ORDERED: ASCO500T21 PO (17:34)
[2022-01-24] MEDS ORDERED: PROP10TA10 PO (17:34)
[2022-01-24] MEDS ORDERED: ATOR40TA PO (17:34)
[2022-01-24] MEDS ORDERED: MULT-594 PO (17:34)
[2022-01-24 17:41] LABS: *BILIRUBIN,URIN NEGATIVE (NEGATIVE); *CLARITY,URINE CLEAR (CLEAR); *COLOR,URINE YELLOW (YELLOW); *KETONES,URINE NEGATIVE (NEGATIVE); *UROBILINOGEN,URINE 0.2 E.U./dl (NORMAL); LEUKOCYTE ESTERASE ,URINE 1+ (NEGATIVE); NITRITE, URINE NEGATIVE (NEGATIVE); UGLUCOSE NEGATIVE (NEGATIVE)
[2022-01-24 17:51] LABS: *BLOOD, URINE TRACE (NEGATIVE)
[2022-01-24] MEDS ORDERED: CEFTRIAXONE 1 G in IV DEXTROSE 5% 50 ML IV ONE (18:15)
[2022-01-24] MEDS ORDERED: CEFTRIAXONE /D5W 50ML IVPB **ER PYXIS IV ONE (18:26)
[2022-01-24] MEDS ORDERED: ACETAMINOPHEN ES 500 MG TABLET PO ONE (18:30)
[2022-01-24] MEDS ORDERED: DENO60DI SQ (19:00)
[2022-01-24] MEDS ORDERED: [UNRECOGNIZED DRUG - OTHER] PO (19:00)
[2022-01-24 19:02] LABS: BACTERIA,URINE FEW /HPF (NONE SEEN); RBC,URINE 0-3 /HPF (0-3); SQUAMOUS EPITHELIAL CELL,UR FEW /HPF (NONE SEEN)
[2022-01-24] MEDS ORDERED: ASPI81TA31 PO (19:02)
[2022-01-24] MEDS ORDERED: PIPERACILLIN SODIUM/TAZOBACTAM 3.375 G in IV DEXTROSE 5% 50 ML IV ONE (20:00)
[2022-01-24] MEDS ORDERED: PIPERACILLIN/TAZOBACTAM/D5W 50 ML IV ONE (20:09)
[2022-01-24] MEDS ORDERED: HYDROMORPHONE 1 MG/1 ML DISP.SYRIN IV ONE (21:00)
[2022-01-24] MEDS ORDERED: ONDANSETRON 4 MG/2 ML VIAL IV ONE (21:15)
[2022-01-24] MEDS ORDERED: DEXTROSE 50% 50 ML DISP.SYRIN IV PRN (21:30)
[2022-01-24] MEDS ORDERED: ONDANSETRON 4 MG/2 ML VIAL IV PRN (21:30)
[2022-01-24] MEDS ORDERED: HYDROMORPHONE 1 MG/1 ML DISP.SYRIN ONE (21:50)
[2022-01-24] MEDS: IV D5 1/2 NS 1000 ML 1,000 ML IV PRN (23:59)
[2022-01-25 00:59] VITALS: BP 101/38
[2022-01-25] MEDS ORDERED: PIPERACILLIN SODIUM/TAZO 3.375 GM VIAL ONE (03:40)
[2022-01-25 04:00] VITALS: BP 107/40
[2022-01-25] MEDS ORDERED: PIPERACILLIN SODIUM/TAZOBACTAM 3.375 G in IV DEXTROSE 5% 50 ML IV SCH ×2 (04:00→12:00)
[2022-01-25] MEDS: BLOOD SUGAR DIAGNOSTIC 1 EACH STRIP VI SCH ×3 (06:34→16:57)
[2022-01-25] MEDS: INSULIN REGULAR, HUMAN 300 UNIT/3 ML VIAL SQ PRN ×2 (06:45→16:57)
[2022-01-25 06:52] LABS: HEMATOCRIT 32.5 % (31.2-41.9); MEAN CORPUSCULAR HEMOGLOBIN 30.5 uug (24.7-32.8); MEAN CORPUSCULAR VOLUME 92.1 fL (75.5-95.3); PLATELET COUNT (AUTO) 181 K/uL (179-408)
[2022-01-25 07:28] LABS: THYROID STIMULATING HORMONE 0.444 mIU/mL (0.358-3.740)
[2022-01-25 07:30] LABS: ALANINE AMINOTRANSFERASE 35 U/L (14-59); ALKALINE PHOSPHATASE 48 U/L (50-136); ASPARTATE AMINOTRANSFERASE 28 U/L (15-37); CARBON DIOXIDE 28 mmol/L (21-32); CHLORIDE 102 mmol/L (98-107); CHOLESTEROL 103 mg/dL (<200); CREATININE 1.4 mg/dL (0.6-1.3); GLUCOSE 190 mg/dL (74-106); HDL CHOLESTEROL 39 mg/dL (40-60); MAGNESIUM 1.8 mg/dL (1.8-2.4); PHOSPHOROUS 4.8 mg/dL (2.5-4.9); POTASSIUM 4.1 mmol/L (3.5-5.1); TOTAL PROTEIN, SERUM 6.2 g/dL (6.4-8.2); TRIGLYCERIDES 87 MG/DL (30-150); UREA NITROGEN, BLOOD 16 mg/dL (7-18)
[2022-01-25] MEDS: PANTOPRAZOLE SODIUM 40 MG VIAL IV SCH (08:35)
[2022-01-25 11:51] VITALS: BP 101/38
[2022-01-25] MEDS: PIPERACILLIN SODIUM/TAZOBACTAM 3.375 G in IV DEXTROSE 5% 100 ML IV SCH ×2 (12:00→19:57)
[2022-01-25 17:04] VITALS: BP 125/59
[2022-01-25] MEDS: IV D5 1/2 NS 1000 ML 1,000 ML IV PRN (18:17)
[2022-01-25] MEDS: ACETAMINOPHEN 650 MG SUPP.RECT RC PRN (19:56)
[2022-01-25 20:00] VITALS: BP 153/48
[2022-01-26] MEDS: BLOOD SUGAR DIAGNOSTIC 1 EACH STRIP VI SCH ×5 (00:53→20:56)
[2022-01-26] MEDS: INSULIN REGULAR, HUMAN 300 UNIT/3 ML VIAL SQ PRN ×5 (01:05→20:47)
[2022-01-26 04:00] VITALS: BP 131/51
[2022-01-26] MEDS: PIPERACILLIN SODIUM/TAZOBACTAM 3.375 G in IV DEXTROSE 5% 100 ML IV SCH ×3 (04:50→20:23)
[2022-01-26 06:39] LABS: HEMATOCRIT 33.5 % (31.2-41.9); MEAN CORPUSCULAR HEMOGLOBIN 30.8 uug (24.7-32.8); MEAN CORPUSCULAR VOLUME 91.8 fL (75.5-95.3); PLATELET COUNT (AUTO) 155 K/uL (179-408)
[2022-01-26 06:54] LABS: MAGNESIUM 1.8 mg/dL (1.8-2.4); PHOSPHOROUS 3.2 mg/dL (2.5-4.9); POTASSIUM 3.8 mmol/L (3.5-5.1)
[2022-01-26] MEDS: ACETAMINOPHEN 650 MG SUPP.RECT RC PRN (09:11)
[2022-01-26] MEDS: PANTOPRAZOLE SODIUM 40 MG VIAL IV SCH (09:11)
[2022-01-26] MEDS: MORPHINE SULFATE 2 MG/1 ML DISP.SYRIN IV PRN ×2 (10:24→22:28)
[2022-01-26 12:00] VITALS: BP 121/70
[2022-01-26] MEDS ORDERED: BUPIVACAINE 0.25% 30 ML VIAL ONE (12:33)
[2022-01-26] MEDS ORDERED: FENTANYL CITRATE 100 MCG/2 ML AMPUL ONE ×2 (12:54→14:36)
[2022-01-26] MEDS ORDERED: ROCURONIUM BROMIDE 50 MG/5 ML VIAL ONE (12:55)
[2022-01-26] MEDS ORDERED: HYDROMORPHONE 2 MG/1 ML DISP.SYRIN ONE (12:55)
[2022-01-26] MEDS ORDERED: MIDAZOLAM HCL 2 MG/2 ML VIAL ONE (12:55)
[2022-01-26] MEDS ORDERED: ALBUTEROL SULFATE 2.5 MG/3 ML NEBU ONE (15:41)
[2022-01-26] MEDS ORDERED: IPRATROPIUM BROMIDE 0.5 MG/2.5 ML NEBU ONE (15:42)
[2022-01-26 16:39] VITALS: BP 120/56
[2022-01-26 16:51] VITALS: BP 121/66
[2022-01-26 17:09] VITALS: BP 118/60
[2022-01-26] MEDS ORDERED: GLYCOPYRROLATE 0.2 MG/ML VIAL IJ ONE (17:36)
[2022-01-26] MEDS ORDERED: METOCLOPRAMIDE HCL 10 MG/2 ML VIAL IV ONE (17:36)
[2022-01-26] MEDS ORDERED: LIDOCAINE-MPF 2% 5 ML VIAL IJ ONE (17:36)
[2022-01-26] MEDS ORDERED: PROPOFOL 200 MG/20 ML BOTTLE IV ONE (17:36)
[2022-01-26] MEDS ORDERED: ONDANSETRON 4 MG/2 ML VIAL IV ONE (17:36)
[2022-01-26] MEDS ORDERED: CEFAZOLIN 1 G VIAL IM ONE (17:36)
[2022-01-26] MEDS ORDERED: SEVOFLURANE 250 ML BOTTLE IH ONE (17:36)
[2022-01-26] MEDS ORDERED: DEXAMETHASONE SOD PHOSPHATE 4 MG INJ IV ONE (17:36)
[2022-01-26] MEDS ORDERED: DEXTROSE 50% 50 ML DISP.SYRIN IV PRN (19:30)
[2022-01-26 20:00] VITALS: BP 136/58
[2022-01-27] MEDS: IV D5 1/2 NS 1000 ML 1,000 ML IV PRN ×2 (01:00→11:27)
[2022-01-27] MEDS: PIPERACILLIN SODIUM/TAZOBACTAM 3.375 G in IV DEXTROSE 5% 100 ML IV SCH ×3 (03:04→21:10)
[2022-01-27 05:37] VITALS: BP 132/60
[2022-01-27] MEDS: MORPHINE SULFATE 2 MG/1 ML DISP.SYRIN IV PRN (06:42)
[2022-01-27] MEDS: BLOOD SUGAR DIAGNOSTIC 1 EACH STRIP VI SCH ×4 (06:54→21:18)
[2022-01-27 07:22] LABS: HEMATOCRIT 32.1 % (31.2-41.9); MEAN CORPUSCULAR HEMOGLOBIN 30.6 uug (24.7-32.8); MEAN CORPUSCULAR VOLUME 92.3 fL (75.5-95.3); PLATELET COUNT (AUTO) 172 K/uL (179-408)
[2022-01-27 07:37] LABS: POTASSIUM 4.2 mmol/L (3.5-5.1); TOTAL PROTEIN, SERUM 7.3 g/dL (6.4-8.2)
[2022-01-27] MEDS: PANTOPRAZOLE SODIUM 40 MG VIAL IV SCH (08:48)
[2022-01-27] MEDS: INSULIN REGULAR, HUMAN 300 UNIT/3 ML VIAL SQ PRN ×4 (08:52→21:18)
[2022-01-27 11:41] VITALS: BP 126/42
[2022-01-27 17:04] VITALS: BP 131/55
[2022-01-27 20:00] VITALS: BP 117/54
[2022-01-28 04:00] VITALS: BP 125/54
[2022-01-28] MEDS: PIPERACILLIN SODIUM/TAZOBACTAM 3.375 G in IV DEXTROSE 5% 100 ML IV SCH ×2 (05:42→11:59)
[2022-01-28 06:33] LABS: HEMATOCRIT 31.5 % (31.2-41.9); MEAN CORPUSCULAR HEMOGLOBIN 30.2 uug (24.7-32.8); MEAN CORPUSCULAR VOLUME 91.1 fL (75.5-95.3); PLATELET COUNT (AUTO) 192 K/uL (179-408)
[2022-01-28 06:41] LABS: BILIRUBIN,TOTAL 0.7 mg/dL (0.2-1.0); CREATININE 0.8 mg/dL (0.6-1.3); POTASSIUM 3.7 mmol/L (3.5-5.1); TOTAL PROTEIN, SERUM 6.3 g/dL (6.4-8.2)
[2022-01-28] MEDS: BLOOD SUGAR DIAGNOSTIC 1 EACH STRIP VI SCH ×2 (07:51→11:43)
[2022-01-28] MEDS: PANTOPRAZOLE SODIUM 40 MG VIAL IV SCH (08:35)
[2022-01-28] MEDS: INSULIN REGULAR, HUMAN 300 UNIT/3 ML VIAL SQ PRN ×2 (08:35→11:55)
[2022-01-28 11:32] VITALS: BP 162/72
[2022-01-28] MEDS ORDERED: CIPR-262 PO (12:42)
[2022-01-28] MEDS: MORPHINE SULFATE 2 MG/1 ML DISP.SYRIN IV PRN (15:03)
[2022-01-28] MEDS ORDERED: HYDR-3980 PO (15:56)
[2022-01-28 16:00] VITALS: BP 155/61
[2022-01-28] MEDS ORDERED: TRAM50TA PO (16:00)
== END 2022-01-28 16:25 | disposition home or self-care (01) | DRG 853 ==
LOC: ER 16:04 → TELE3 22:59 → MEDSURG3 01-25 16:00
PROVIDERS: ADMIT Internal Medicine; ATTEND Nurse Practitioner Acute Care
PROC: 0FT44ZZ Resection of Gallbladder, Percutaneous Endoscopic Approach (ICD-10-PCS; principal; 2022-01-25)
PROC: 05HD33Z Insertion of Infusion Device into Right Cephalic Vein, Percutaneous Approach (ICD-10-PCS; 2022-01-26)
DX: A41.9 Sepsis, unspecified organism (principal); N17.0 Acute kidney failure with tubular necrosis; K81.0 Acute cholecystitis; E87.2 Acidosis; I69.354 Hemiplegia and hemiparesis following cerebral infarction affecting left non-dominant side; K82.0 Obstruction of gallbladder; N39.0 Urinary tract infection, site not specified; K66.0 Peritoneal adhesions (postprocedural) (postinfection); E78.5 Hyperlipidemia, unspecified; I10 Essential (primary) hypertension; Z20.822 Contact with and (suspected) exposure to COVID-19; K76.0 Fatty (change of) liver, not elsewhere classified; E11.9 Type 2 diabetes mellitus without complications; F32.A Depression, unspecified; F01.50 Vascular dementia, unspecified severity, without behavioral disturbance, psychotic disturbance, mood disturbance, and anxiety; D63.8 Anemia in other chronic diseases classified elsewhere; B96.89 Other specified bacterial agents as the cause of diseases classified elsewhere; G89.4 Chronic pain syndrome; I48.91 Unspecified atrial fibrillation; Z87.442 Personal history of urinary calculi; Z79.4 Long term (current) use of insulin; Z79.84 Long term (current) use of oral hypoglycemic drugs; Z79.82 Long term (current) use of aspirin; Z90.710 Acquired absence of both cervix and uterus; Z79.899 Other long term (current) drug therapy
CPT/HCPCS: 36415; 71045; 78445; 83605; 83690; 83735; 84100; 84443; 84484; 85025; 87040; 87070; 87075; 87077; 87086; 87205; 87400; 93005; 94664; 97161; A9150; A9537; C9113; G0378; J0690; J0696; J1100; J1170; J1815; J2250; J2270; J2405; J2543; J2765; J3010; J3490; J3590; J7040